=== PATIENT | female | born 1965 | race Caucasian/White ===

== ENCOUNTER 2022-08-11 09:13 | Emergency (ER) | payer MEDICAID ==
[~2022-08-11] VITALS: Ht 166.4 cm; Wt 81.8 kg
--- NOTE | 2022-08-11 09:22 | NUR ---
PATIENT REFUSED LAB DRAW IN TRIAGE, THAT IS USUALLY PERFORMED PER PROTOCOL, WITH ACS SYMPTOMS.
[2022-08-11 11:30] VITALS: BP 121/59
[2022-08-11] MEDS ORDERED: GUAI118S13 PO (12:45)
--- NOTE | 2022-08-11 13:08 | NUR ---
AGREE WITH GENERAL ASSESSMENT PERFORMED BY Erick MARQUEZ LVN.
== END 2022-08-11 13:14 | disposition home or self-care (01) ==
LOC: ER 09:13
DX: J02.9 Acute pharyngitis, unspecified (principal); R07.81 Pleurodynia; R05.9 Cough, unspecified; Z88.5 Allergy status to narcotic agent
CPT/HCPCS: 71045; 93005; 99283

== ENCOUNTER 2022-08-21 12:28 | Emergency (ER) | payer MEDICAID ==
[~2022-08-21] VITALS: Ht 165.1 cm; Wt 81.0 kg
[2022-08-21 12:29] VITALS: BP 128/78
--- NOTE | 2022-08-21 12:43 | NUR ---
first contact. ambulatory ao4 slight dizziness. cp pain with cough. productive cough with green sputum. pt unable to lay flat. skin w/d/i pink. resp shallow but even unlabored. denies gastro issues but stated she had hard time evacuating yesterday.
[2022-08-21] MEDS ORDERED: oxymetazoline 15 ML nasal spray NS ONE (12:50)
--- NOTE | 2022-08-21 12:55 | NUR ---
pt refused blood draw aware.
--- NOTE | 2022-08-21 13:48 | NUR ---
pt left before final paperwork. did not take vital signs
[2022-08-21] MEDS ORDERED: FLUT16SP2 BOTHNARES (13:49)
== END 2022-08-21 13:52 | disposition home or self-care (01) ==
LOC: ER 12:29
DX: J06.9 Acute upper respiratory infection, unspecified (principal); Z20.822 Contact with and (suspected) exposure to COVID-19; R09.81 Nasal congestion; R07.89 Other chest pain; Z88.5 Allergy status to narcotic agent; Z88.8 Allergy status to other drugs, medicaments and biological substances
CPT/HCPCS: 71045; 87502; 87503; 87811; 99284

== ENCOUNTER 2022-08-24 17:11 | Emergency (ER) | payer MEDICAID ==
[~2022-08-24] VITALS: Ht 165.1 cm; Wt 81.8 kg
[~2022-08-24 17:11] MED LIST: FLUT16SP2 BOTHNARES
[2022-08-24 17:15] VITALS: BP 141/77
[2022-08-24] MEDS ORDERED: orphenadrine citrate 60mg/2ml inj. IM ONE (18:55)
== END 2022-08-24 20:24 | disposition home or self-care (01) ==
LOC: ER 17:11
DX: M54.2 Cervicalgia (principal); M54.50 Low back pain, unspecified; Z88.5 Allergy status to narcotic agent; Z88.8 Allergy status to other drugs, medicaments and biological substances; Z79.899 Other long term (current) drug therapy; V89.2XXA Person injured in unspecified motor-vehicle accident, traffic, initial encounter; Y93.89 Activity, other specified; Y92.89 Other specified places as the place of occurrence of the external cause; Y99.8 Other external cause status
CPT/HCPCS: 96372; 99283; J2360

== ENCOUNTER 2023-11-07 11:28 | Outpatient (CLI) | payer MEDICAID | END 2023-11-07 23:59 | disposition home or self-care (01) | LOC: RAD 11:28 | PROVIDERS: ATTEND Student in an Organized Health Care Education/Training Program | DX: M79.672 Pain in left foot (principal) | CPT/HCPCS: 73630 ==

== ENCOUNTER 2023-11-14 15:02 | Emergency (ER) | payer MEDICAID ==
[~2023-11-14] VITALS: Ht 166.4 cm; Wt 86.0 kg
[2023-11-14 15:06] VITALS: BP 119/68; PULSE 84; RESP 16; TEMP 98.5; O2SAT 100
== END 2023-11-14 16:18 | disposition home or self-care (01) ==
LOC: ER 15:02
DX: S92.422A Displaced fracture of distal phalanx of left great toe, initial encounter for closed fracture (principal); Z88.5 Allergy status to narcotic agent; Z79.899 Other long term (current) drug therapy; X58.XXXA Exposure to other specified factors, initial encounter; Y93.89 Activity, other specified; Y92.89 Other specified places as the place of occurrence of the external cause; Y99.8 Other external cause status
CPT/HCPCS: 73630; 99283; L3265

== ENCOUNTER 2023-11-21 09:44 | Emergency (ER) | payer MEDICAID ==
[~2023-11-21] VITALS: Ht 165.1 cm; Wt 85.7 kg
[2023-11-21 10:55] LABS: BILIRUBIN,URINE NEGATIVE (Neg); CLARITY,URINE CLOUDY (Clear); COLOR,URINE YELLOW (Yellow); GLUCOSE, URINE NEGATIVE (Neg); KETONES,URINE NEGATIVE (Neg); LEUKOCYTE ESTERASE ,URINE NEGATIVE (Neg); NITRITES, URINE NEGATIVE (Neg); OCCULT BLOOD,URINE NEGATIVE (Neg); PROTEIN,URINE NEGATIVE (Neg); UROBILINOGEN,URINE 0.2 E.U/dL (0.2-1.0)
[2023-11-21 11:16] LABS: BASOPHILS % (AUTO) 0.4 % (0-1); EOSINOPHILS # (AUTO) 0.1 X10'3 (0-0.9); EOSINOPHILS % (AUTO) 0.8 % (0-6); LYMPHOCYTES # (AUTO) 3.4 X10'3 (1.1-4.8); LYMPHOCYTES % (AUTO) 41.8 % (21-51); MEAN CORPUSCULAR HEMOGLOBIN 30.8 PG (27.0-31.0); MEAN CORPUSCULAR HGB CONC 33.2 g/dL (33.0-36.5); MEAN CORPUSCULAR VOLUME 92.8 FL (78-98); MEAN PLATELET VOLUME 9.2 FL (7.4-10.4); MONOCYTES # (AUTO) 0.5 X10'3 (0-0.9); MONOCYTES % (AUTO) 6.4 % (2-12); NEUTROPHILS # (AUTO) 4.1 X10'3 (1.8-7.7); NEUTROPHILS % (AUTO) 50.6 % (42-75); PLATELET COUNT 274 X10'3 (140-440); WHITE BLOOD COUNT 8.1 X10'3 (4.5-11.0)
[2023-11-21 11:17] LABS: UA COLLECTION TYPE CLN CATCH MIDSTREAM
[2023-11-21 11:25] LABS: BACTERIA,URINE 2+ /HPF (Neg); MUCUS STRANDS MANY /LPF (Neg); SQUAMOUS EPITHELIAL CELL,UR MANY /LPF (FEW)
[2023-11-21 11:26] LABS: RBC,URINE 0-2 /HPF (0-2)
[2023-11-21 11:34] LABS: ALANINE AMINOTRANSFERASE 24 U/L (12-78); ALBUMIN 3.5 G/DL (3.4-5.0); ALBUMIN/GLOBULIN RATIO 0.8 (1.1-1.5); ALKALINE PHOSPHATASE 68 IU/L (46-116); ANION GAP 9 (8-16); ASPARTATE AMINO TRANSFERASE 18 U/L (10-37); BILIRUBIN,TOTAL 0.6 MG/DL (0.1-1.0); BLOOD UREA NITROGEN 14 MG/DL (7-18); BUN/CREATININE RATIO 18.9 (10.0-20.0); CALCIUM 8.7 MG/DL (8.5-10.1); CHLORIDE 104 MMOL/L (99-107); CREATININE 0.74 MG/DL (0.40-0.90); GLUCOSE 101 MG/DL (70-104); LIPASE 61 U/L (16-77); POTASSIUM 3.8 MMOL/L (3.5-5.1); SODIUM 139 MMOL/L (135-145); TOTAL CARBON DIOXIDE 25.8 MMOL/L (24-32); TOTAL PROTEIN 7.8 G/DL (6.4-8.2); eCRCL 76 ML/MIN; eGFR 81 ML/MIN
[2023-11-21] MEDS ORDERED: iohexol 300mg/ml 100ml inj. ONE (12:38)
[2023-11-21 13:30] VITALS: BP 127/81; PULSE 94; RESP 16; O2SAT 99
[2023-11-21] MEDS ORDERED: METR-159 PO (13:57)
[2023-11-21 14:09] VITALS: TEMP 98
== END 2023-11-21 14:10 | disposition home or self-care (01) ==
LOC: ER 09:45
DX: K52.9 Noninfective gastroenteritis and colitis, unspecified (principal); R10.32 Left lower quadrant pain; Z88.5 Allergy status to narcotic agent; Z79.899 Other long term (current) drug therapy
CPT/HCPCS: 36415; 74177; 80053; 81001; 83690; 85025; 99285; J3490; Q9967

== ENCOUNTER 2024-03-24 09:07 | Emergency (ER) | payer MEDICAID ==
[~2024-03-24] VITALS: Ht 165.1 cm; Wt 84.3 kg
[2024-03-24 09:40] LABS: BASOPHILS % (AUTO) 0.5 % (0-1); EOSINOPHILS # (AUTO) 0.1 X10'3 (0-0.9); EOSINOPHILS % (AUTO) 1.1 % (0-6); HEMATOCRIT 39.8 % (35.0-45.0); HEMOGLOBIN 13.3 g/dl (12.0-16.0); LYMPHOCYTES # (AUTO) 2.3 X10'3 (1.1-4.8); LYMPHOCYTES % (AUTO) 33.8 % (21-51); MEAN CORPUSCULAR HGB CONC 33.4 g/dL (33.0-36.5); MEAN CORPUSCULAR VOLUME 92.9 FL (78-98); MEAN PLATELET VOLUME 8.9 FL (7.4-10.4); MONOCYTES # (AUTO) 0.5 X10'3 (0-0.9); NEUTROPHILS # (AUTO) 3.9 X10'3 (1.8-7.7); NEUTROPHILS % (AUTO) 56.6 % (42-75); PLATELET COUNT 284 X10'3 (140-440); RED BLOOD COUNT 4.29 X10'6 (4.20-5.60); RED CELL DISTRIBUTION WIDTH 15.5 % (11.5-14.5); WHITE BLOOD COUNT 6.8 X10'3 (4.5-11.0)
[2024-03-24 09:55] LABS: ALANINE AMINOTRANSFERASE 20 U/L (12-78); ALBUMIN 3.7 G/DL (3.4-5.0); ALBUMIN/GLOBULIN RATIO 0.9 (1.1-1.5); ALKALINE PHOSPHATASE 76 IU/L (46-116); AMYLASE 48 U/L (25-115); ANION GAP 8 (8-16); ASPARTATE AMINO TRANSFERASE 14 U/L (10-37); BLOOD UREA NITROGEN 14 MG/DL (7-18); BUN/CREATININE RATIO 16.9 (10.0-20.0); CALCIUM 9.3 MG/DL (8.5-10.1); CHLORIDE 106 MMOL/L (99-107); CREATININE 0.83 MG/DL (0.40-0.90); GLUCOSE 104 MG/DL (70-104); LIPASE 57 U/L (16-77); POTASSIUM 4.6 MMOL/L (3.5-5.1); SODIUM 142 MMOL/L (135-145); TOTAL CARBON DIOXIDE 28.5 MMOL/L (24-32); eCRCL 68 ML/MIN; eGFR 86 ML/MIN
[2024-03-24 11:49] LABS: BILIRUBIN,URINE NEGATIVE (Neg); CLARITY,URINE SLIGHTLY CLOUDY (Clear); COLOR,URINE YELLOW (Yellow); GLUCOSE, URINE NEGATIVE (Neg); KETONES,URINE NEGATIVE (Neg); LEUKOCYTE ESTERASE ,URINE NEGATIVE (Neg); NITRITES, URINE NEGATIVE (Neg); OCCULT BLOOD,URINE NEGATIVE (Neg); PH,URINE 5.5 (4.8-8.0); PROTEIN,URINE NEGATIVE (Neg); UROBILINOGEN,URINE 0.2 E.U/dL (0.2-1.0)
[2024-03-24 12:06] LABS: UA COLLECTION TYPE CLN CATCH MIDSTREAM
[2024-03-24 12:07] LABS: BACTERIA,URINE 2+ /HPF (Neg); MUCUS STRANDS MODERATE /LPF (Neg); RBC,URINE 0-2 /HPF (0-2); SQUAMOUS EPITHELIAL CELL,UR MANY /LPF (FEW); WBC,URINE 0-4 /HPF (0-4)
[2024-03-24] MEDS: pantoprazole 40mg Tablet.DR PO ONE (12:50)
[2024-03-24] MEDS ORDERED: PANT-47 PO (15:19)
[2024-03-24 15:33] VITALS: BP 120/75; PULSE 77; RESP 18; TEMP 98.6; O2SAT 99
[2024-03-25] MEDS ORDERED: pantoprazole 40mg Tablet.DR PO ONE (07:30)
== END 2024-03-24 15:36 | disposition home or self-care (01) ==
LOC: ER 09:07
DX: K29.00 Acute gastritis without bleeding (principal); R10.13 Epigastric pain; Z88.5 Allergy status to narcotic agent; Z79.899 Other long term (current) drug therapy
CPT/HCPCS: 36415; 80053; 81001; 82150; 83690; 85025; 99285

== ENCOUNTER → 2024-04-08 | Day surgery (SDC) | payer MEDICAID ==
[2024-04-05 11:47] LABS: BILIRUBIN,URINE NEGATIVE (Neg); CLARITY,URINE SLIGHTLY CLOUDY (Clear); COLOR,URINE YELLOW (Yellow); GLUCOSE, URINE NEGATIVE (Neg); KETONES,URINE NEGATIVE (Neg); LEUKOCYTE ESTERASE ,URINE NEGATIVE (Neg); NITRITES, URINE NEGATIVE (Neg); OCCULT BLOOD,URINE NEGATIVE (Neg); PH,URINE 6.5 (4.8-8.0); PROTEIN,URINE NEGATIVE (Neg); UROBILINOGEN,URINE 0.2 E.U/dL (0.2-1.0)
[2024-04-05 11:54] LABS: MUCUS STRANDS MODERATE /LPF (Neg); SQUAMOUS EPITHELIAL CELL,UR MANY /LPF (FEW); UA COLLECTION TYPE CLN CATCH MIDSTREAM
[2024-04-05 11:55] LABS: BASOPHILS % (AUTO) 0.5 % (0-1); EOSINOPHILS # (AUTO) 0.1 X10'3 (0-0.9); EOSINOPHILS % (AUTO) 1.1 % (0-6); LYMPHOCYTES # (AUTO) 2.3 X10'3 (1.1-4.8); LYMPHOCYTES % (AUTO) 34.4 % (21-51); MEAN CORPUSCULAR HEMOGLOBIN 30.8 PG (27.0-31.0); MEAN CORPUSCULAR HGB CONC 32.9 g/dL (33.0-36.5); MEAN CORPUSCULAR VOLUME 93.6 FL (78-98); MEAN PLATELET VOLUME 9.1 FL (7.4-10.4); MONOCYTES # (AUTO) 0.5 X10'3 (0-0.9); MONOCYTES % (AUTO) 6.9 % (2-12); NEUTROPHILS # (AUTO) 3.8 X10'3 (1.8-7.7); NEUTROPHILS % (AUTO) 57.1 % (42-75); PRE OP HEMATOCRIT 39.6 % (35.0-45.0); PRE OP PLATELET COUNT 264 X10'3 (140-440); PRE OP WHITE BLOOD COUNT 6.7 10'3 (4.8-10.8); RED BLOOD COUNT 4.23 X10'6 (4.20-5.60); RED CELL DISTRIBUTION WIDTH 15.7 % (11.5-14.5)
[2024-04-05 11:55] LABS: BACTERIA,URINE 2+ /HPF (Neg); RBC,URINE 0-2 /HPF (0-2); WBC,URINE 0-4 /HPF (0-4)
[2024-04-05 12:04] LABS: ALBUMIN 3.6 G/DL (3.4-5.0); ALBUMIN/GLOBULIN RATIO 0.9 (1.1-1.5); ALKALINE PHOSPHATASE 75 IU/L (46-116); BLOOD UREA NITROGEN 14 MG/DL (7-18); BUN/CREATININE RATIO 18.2 (10.0-20.0); CALCIUM 8.9 MG/DL (8.5-10.1); CHLORIDE 106 MMOL/L (99-107); CREATININE 0.77 MG/DL (0.40-0.90); PRE OP ALT 21 U/L (30-65); PRE OP ANION GAP 4 (8-16); PRE OP AST 29 U/L (10-37); PRE OP BILIRUB, TOTAL 0.6 MG/DL (0.0-1.0); PRE OP GLUCOSE 99 MG/DL (70-104); PRE OP POTASSIUM 4.4 MMOL/L (3.4-5.1); PRE OP SODIUM 139 MMOL/L (135-145); TOTAL CARBON DIOXIDE 28.9 MMOL/L (24-32); TOTAL PROTEIN 7.8 G/DL (6.4-8.2); eGFR > 90 ML/MIN
[~2024-04-08] VITALS: Ht 160 cm; Wt 83.0 kg
[~2024-04-08] MED LIST changes: +ERGO500093 PO; -FLUT16SP2 BOTHNARES; +HYDR-3972 PO; +MIDAZolam 1mg/ml 10ml vial ONE; +PANT40TA54 PO; +ROPIVAcaine 0.5% (5mg/ml) 30ml vial ONE; +fentaNYL/PF 50MCG/1 ML 2ML syringe ONE; +ringers solution, lacted 1,000 ML IV SCH
[2024-04-08] MEDS: cefazolin 2gm/D5W 100mL 100 ML IV ONE (05:51)
[2024-04-08] MEDS: famotidine 20mg tablet PO ONE (05:53)
[2024-04-08 05:54] VITALS: RESP 15; O2SAT 97
[2024-04-08] MEDS: mupirocin 2% nasal ointment 1gm UD NS ONE (06:32)
== END | disposition home or self-care (01) ==
LOC: PAS 05:37
PROVIDERS: ATTEND Podiatrist Foot & Ankle Surgery
DX: M19.072 Primary osteoarthritis, left ankle and foot (principal); M25.472 Effusion, left ankle; M25.372 Other instability, left ankle; Z53.8 Procedure and treatment not carried out for other reasons; G43.909 Migraine, unspecified, not intractable, without status migrainosus; F41.9 Anxiety disorder, unspecified; F32.A Depression, unspecified; M79.7 Fibromyalgia; Z79.891 Long term (current) use of opiate analgesic; Z79.899 Other long term (current) drug therapy; Z98.890 Other specified postprocedural states; Z88.5 Allergy status to narcotic agent; Z88.8 Allergy status to other drugs, medicaments and biological substances; Z83.3 Family history of diabetes mellitus; Z80.9 Family history of malignant neoplasm, unspecified
CPT/HCPCS: 36415; 80053; 81001; 85025; J0690; J7120; J2250; J2795; J3010

== ENCOUNTER 2024-06-23 08:42 | Emergency (ER) | payer MEDICAID ==
[~2024-06-23] VITALS: Ht 165.1 cm; Wt 81.0 kg
[~2024-06-23 08:42] MED LIST changes: -MIDAZolam 1mg/ml 10ml vial ONE; -ROPIVAcaine 0.5% (5mg/ml) 30ml vial ONE; -fentaNYL/PF 50MCG/1 ML 2ML syringe ONE; -ringers solution, lacted 1,000 ML IV SCH
[2024-06-23 09:18] LABS: BILIRUBIN,URINE NEGATIVE (Neg); CLARITY,URINE CLEAR (Clear); COLOR,URINE YELLOW (Yellow); GLUCOSE, URINE NEGATIVE (Neg); KETONES,URINE NEGATIVE (Neg); LEUKOCYTE ESTERASE ,URINE NEGATIVE (Neg); NITRITES, URINE NEGATIVE (Neg); OCCULT BLOOD,URINE NEGATIVE (Neg); PROTEIN,URINE NEGATIVE (Neg); UROBILINOGEN,URINE 0.2 E.U/dL (0.2-1.0)
[2024-06-23 09:23] LABS: UA COLLECTION TYPE CLN CATCH MIDSTREAM
[2024-06-23] MEDS ORDERED: DIF150T PO (10:27)
[2024-06-23 10:31] VITALS: BP 115/78; PULSE 68; RESP 14; TEMP 98.1; O2SAT 98
== END 2024-06-23 10:38 | disposition home or self-care (01) ==
LOC: ER 08:43
DX: R30.0 Dysuria (principal); M06.9 Rheumatoid arthritis, unspecified; M79.7 Fibromyalgia; Z88.5 Allergy status to narcotic agent; Z79.899 Other long term (current) drug therapy; Z87.440 Personal history of urinary (tract) infections
CPT/HCPCS: 81003; 99284

== ENCOUNTER 2025-02-23 15:18 | Outpatient (CLI) | payer MEDICAID ==
--- NOTE | 2025-02-23 16:10 | RADIOLOGY REPORT ---
CHEST RADIOGRAPH Indication: PULMONARY SARCOIDOSIS Technique: Frontal and lateral view of the chest was obtained Comparison: CHEST,SINGLE VIEW on DOS: 08/21/22, CHEST,SINGLE VIEW on DOS: 08/11/22, CHEST,SINGLE VIEW o n DOS: 07/23/22 FINDINGS: Lines and Tubes: None Lungs: Clear Pleura: No effusion. No pneumothorax. Cardiomediastinal contours: Unremarkable Bones: Unremarkable IMPRESSION: No evidence of acute disease.
== END 2025-02-23 23:59 | disposition home or self-care (01) ==
LOC: RAD 15:18
PROVIDERS: ATTEND Physician Assistant Medical
DX: D86.0 Sarcoidosis of lung (principal)
CPT/HCPCS: 71046